=== PATIENT | female | born 1960 | race Caucasian/White ===

== ENCOUNTER 2018-02-27 15:55 | Emergency (ER) | payer OTHER ==
[2018-02-27] MEDS ORDERED: Ondansetron PF 4 MG/2 ML Vial ONE ×2 (16:18→17:27)
[2018-02-27 16:56] LABS: ALT (SGPT) 92 U/L (8-55); AST (SGOT) 94 U/L (5-34); Albumin 3.5 g/dL (3.5-5.0); Alkaline Phosphatase 154 U/L (40-150); Anion Gap 18 mmol/L (10-20); BUN (Urea Nitrogen) 15 mg/dL (9.8-20.1); Band 37 % (5-11); Bilirubin, Total 0.5 mg/dL (0.2-1.2); Calc. Creatinine Clearance 0 mL/min (70-130); Calcium 8.4 mg/dL (7.8-10.44); Carbon Dioxide 21 mmol/L (22-29); Chloride 101 mmol/L (98-107); Dohle Bodies SLIGHT; Estimated GFR-MDRD 58; Globulin 2.9 g/dL (2.4-3.5); Glucose 363 mg/dL (70-105); Hemoglobin 12.6 g/dL (12.0-16.0); Large Platelets SLIGHT; Lipase 20 U/L (8-78); Lymphocytes 11 % (21-51); MDiff Complete? YES; Mean Corpuscular HGB CONC 33.8 g/dL (32.0-36.0); Mean Corpuscular Hemoglobin 29.3 pg (27.0-31.0); Mean Corpuscular Volume 86.7 fL (78.0-98.0); Mean Platelet Volume 8.9 fL (7.4-10.4); Monocytes 2 % (0-10); Neutrophil 44 % (42-75); PLT Morphology Comment Appears Adequate; Platelet Count 157 thou/uL (130-400); Protein, Total 6.4 g/dL (6.0-8.3); RBC Distribution Width 11.9 % (11.5-14.5); Reactive Lymphocytes 2 % (0-10); Reflex for Review?? YES; Sodium 137 mmol/L (136-145); Toxic Granulation SLIGHT; Troponin I Less than 0.010 ng/mL (< 0.028); White Blood Cell (WBC) Count 4.8 thou/uL (4.8-10.8)
[2018-02-27 17:05] LABS: Potassium 2.7 mmol/L (3.5-5.1)
[2018-02-27] MEDS ORDERED: Potassium Chloride 20 MEQ TAB ONE (17:13)
[2018-02-27] MEDS ORDERED: Potassium Chloride 10 MEQ/100 ML PREMIX BAG ONE (17:27)
[2018-02-27] MEDS ORDERED: Magnesium Sulfate 2 GM/NS 0.9% 50 ML BAG ONE (17:27)
[2018-02-27 18:47] LABS: Bilirubin Negative (Negative); Blood, Urine Trace (Negative); Clarity Slightly Cloudy (Clear); Glucose, Urine (Dipstick) 100 mg/dL (Negative); Leukocyte Negative (Negative); Nitrite Negative (Negative); Protein, Urine (Dipstick) 30 mg/dL (Neg-Trace); Specific Gravity, Urine 1.025 (1.005-1.030); Urobilinogen 0.2 mg/dL (0.2-1.0)
[2018-02-27 18:51] LABS: Bacteria/HPF 1+ HPF (None Seen); Hyaline Casts/LPF 0-3 HYALINE CAST LPF (0-3 Hyaline); RBC/HPF 0-3 HPF (0-3); WBC/HPF 0-3 HPF (0-3)
[2018-02-27 18:52] LABS: Other Casts/LPF 0-3 WBC CASTS LPF (0-3 Hyaline)
== END 2018-02-27 23:12 | disposition home or self-care (01) ==
LOC: SCSER 15:55
DX: E87.6 Hypokalemia (principal); E11.65 Type 2 diabetes mellitus with hyperglycemia; R11.2 Nausea with vomiting, unspecified; R19.7 Diarrhea, unspecified; Z79.84 Long term (current) use of oral hypoglycemic drugs
CPT/HCPCS: 36416; 80053; 81003; 81015; 82010; 83690; 84484; 85025; 85060; 93005; 96361; 96365; 96366; 96367; 96375; 96376; J2405; J3475; J3480

== ENCOUNTER 2023-10-15 14:20 | Outpatient (CLI) | payer MEDICARE | END 2023-10-15 14:21 | disposition home or self-care (01) | LOC: LABBT 14:20 | PROVIDERS: ATTEND Specialist | DX: Z01.818 Encounter for other preprocedural examination (principal); C50.911 Malignant neoplasm of unspecified site of right female breast | CPT/HCPCS: 71046; 93005; 93010 ==

== ENCOUNTER 2023-10-20 06:49 | Day surgery (SDC) | payer MEDICARE ==
[2023-10-15 15:02] VITALS: BMI 33.3
[2023-10-20] MEDS ORDERED: Isosulfan Blue 50 MG/5 ML VIAL ONE (07:17)
[2023-10-20] MEDS ORDERED: EPINEPHrine 1 MG/ML VIAL ONE (07:17)
[2023-10-20] MEDS ORDERED: Bupivacaine 0.25% HCL 30 ML VIAL ONE (07:17)
[2023-10-20] MEDS ORDERED: Lidocaine 1% (PF) 30 ML VIAL ONE (07:17)
[2023-10-20] MEDS ORDERED: Midazolam HCl 2 mg/2 ml Vial ONE (09:22)
[2023-10-20] MEDS ORDERED: Fentanyl 250 MCG/5 ML VIAL ONE (09:22)
[2023-10-20] MEDS ORDERED: PROPOFOL 20 ML ONE (09:22)
[2023-10-20] MEDS ORDERED: Ondansetron PF 4 MG/2 ML Vial ONE (09:23)
[2023-10-20] MEDS ORDERED: Dexamethasone 4 mg/ml Vial ONE (09:23)
[2023-10-20] MEDS ORDERED: Lidocaine 1% PF 5 ML VIAL ONE (09:23)
[2023-10-20] MEDS ORDERED: Ketorolac Tromethamine 30 MG (1 mL) VIAL ONE (10:15)
[2023-10-20] MEDS ORDERED: Acetaminophen 500 MG TAB ONE (10:15)
[2023-10-20] MEDS ORDERED: SUGAMMADEX SODIUM 200 MG/2 ML VIAL ONE (10:17)
[2023-10-20] MEDS ORDERED: Sodium Chloride 0.9% 100 ML ONE (11:21)
[2023-10-20] MEDS ORDERED: CEFAZOLIN 2 GM VIAL ONE (11:21)
[2023-10-20] MEDS ORDERED: PHENYLEPHRINE-NS 100 MCG/ML 10 ML SYRINGE ONE (12:07)
[2023-10-20] MEDS ORDERED: Promethazine HCl 25 MG/ML VIAL ONE (14:02)
== END 2023-10-20 15:40 | disposition home or self-care (01) ==
LOC: SDC 06:49
PROVIDERS: ATTEND Specialist
PROC: 0HBT0ZZ Excision of Right Breast, Open Approach (ICD-10-PCS; principal; 2023-10-20)
PROC: 07T50ZZ Resection of Right Axillary Lymphatic, Open Approach (ICD-10-PCS; 2023-10-20)
PROC: 0HB5XZX Excision of Chest Skin, External Approach, Diagnostic (ICD-10-PCS; 2023-10-20)
DX: C50.911 Malignant neoplasm of unspecified site of right female breast (principal); E11.9 Type 2 diabetes mellitus without complications; I10 Essential (primary) hypertension; F32.A Depression, unspecified; E78.00 Pure hypercholesterolemia, unspecified; Z90.49 Acquired absence of other specified parts of digestive tract; Z98.890 Other specified postprocedural states; Z88.8 Allergy status to other drugs, medicaments and biological substances; Z88.1 Allergy status to other antibiotic agents; Z88.0 Allergy status to penicillin; Z79.899 Other long term (current) drug therapy
CPT/HCPCS: 19125; 19281; 19301; 38525; 38900; 71045; 76098; 78195; A9541; C1713; C1788; J0171; J0665; J1100; J1642; J1885; J2001; J2405; J2550; J2704; J3010; J3490; Q9968; J2250